=== PATIENT | female | born 1980 | race Caucasian/White ===

== ENCOUNTER 2024-03-05 10:19 | Emergency (ER) | payer MEDICAID, OTHER ==
[~2024-03-05] VITALS: Ht 152.4 cm; Wt 61.2 kg
[2024-03-05 10:21] VITALS: BP 125/77; PULSE 87; RESP 18; TEMP 98.3; O2SAT 100
[2024-03-05 12:52] VITALS: BP 121/71; PULSE 68; RESP 16; TEMP 97.2; O2SAT 99
== END 2024-03-05 12:52 | disposition home or self-care (01) ==
LOC: MED 10:19
DX: N63.20 Unspecified lump in the left breast, unspecified quadrant (principal); Z98.82 Breast implant status
CPT/HCPCS: 76641; 99284; Q0092